=== PATIENT | male | born 1945 | race Caucasian/White ===

== ENCOUNTER 2016-09-01 08:04 | Outpatient (RCR) | payer MEDICARE, OTHER ==
[~2016-09-01 08:04] MED LIST: AMLO10TA82 PO; AMLO5TAB2 PO; ASCO500T20 PO; ASP81CT PO; ATR20T PO; CANA100T PO; CEFU500T5 PO; CETI1TAB2 PO; CLOP75TA28 PO; COLE1TAB PO; DIPH-450 PO; E400C PO; GLMP4T PO; IRBE300T9 PO; ISM30TCR PO; LEVO200T30 PO; LEVO200T6 PO; LEVO300T2 PO; LOSA100T28 PO; LVT.05T PO; METF-380 PO; METO-333 PO; MTF500T PO; MTP25TSR PO; MULT-963 PO; Nitroglycerin SL; OMEP20CA12 PO; POTASSIUM GLUCONATE 595 MG PO; PRAV20TA3 PO; SITA100T PO; UBID50TA3 PO
[2016-09-02] MEDS ORDERED: INSU100I29 SQ (12:45)
[2016-09-02] MEDS ORDERED: NITR0.4T39 SL (12:45)
[2016-09-02] MEDS ORDERED: KRIL1CAP19 PO (13:06)
[2016-09-02] MEDS ORDERED: ISM60TCR PO (13:06)
[2016-09-02] MEDS ORDERED: METF500T4 PO ×2 (13:06)
[2016-09-02] MEDS ORDERED: AMLO10TA2 PO (13:06)
[2016-09-02] MEDS ORDERED: UBID1CAP2 PO (13:06)
[2016-09-02] MEDS ORDERED: CETI1TAB61 PO (13:06)
[2016-09-02] MEDS ORDERED: METO50TA2 PO (13:06)
[2016-09-02] MEDS ORDERED: LEVO175T5 PO (13:06)
[2016-09-02] MEDS ORDERED: GLIM4TAB PO (13:06)
[2016-09-02] MEDS ORDERED: ASCO1TAB36 PO (13:06)
[2016-09-02] MEDS ORDERED: ASPI-983 PO (13:06)
[2016-09-02] MEDS ORDERED: SITA100T12 PO (13:06)
== END 2016-11-03 | disposition home or self-care (01) ==
PROVIDERS: ATTEND Orthopaedic Surgery
DX: M75.111 Incomplete rotator cuff tear or rupture of right shoulder, not specified as traumatic (principal)

== ENCOUNTER 2017-02-16 09:16 | Outpatient (RCR) | payer MEDICARE, OTHER ==
[~2017-02-16 09:16] MED LIST changes: +AMLO10TA2 PO; +ASCO1TAB36 PO; +ASPI-983 PO; +CETI1TAB61 PO; +GLIM4TAB PO; +INSU100I29 SQ; +ISM60TCR PO; +KRIL1CAP19 PO; +LEVO175T5 PO; +METF500T4 PO; +METO50TA2 PO; +NITR0.4T39 SL; +SITA100T12 PO; +UBID1CAP2 PO
== END 2017-02-17 | disposition home or self-care (01) ==
LOC: CR 09:16
PROVIDERS: ATTEND Internal Medicine Cardiovascular Disease
DX: Z48.812 Encounter for surgical aftercare following surgery on the circulatory system (principal); Z95.5 Presence of coronary angioplasty implant and graft
CPT/HCPCS: 93798

== ENCOUNTER 2017-02-25 08:21 | Outpatient (RCR) | payer MEDICARE, OTHER | END 2017-03-04 08:24 | disposition home or self-care (01) | LOC: CR 08:21 | PROVIDERS: ATTEND Internal Medicine Cardiovascular Disease | DX: Z48.812 Encounter for surgical aftercare following surgery on the circulatory system (principal); Z95.5 Presence of coronary angioplasty implant and graft | CPT/HCPCS: 93798 ==

== ENCOUNTER 2018-01-06 06:12 | Outpatient (CLI) | payer MEDICARE, OTHER ==
[~2018-01-06] VITALS: Ht 177.8 cm; Wt 113.4 kg
[~2018-01-06 06:12] MED LIST changes: +METO50TA15 PO; -METO50TA2 PO
[2018-01-06] MEDS ORDERED: ROSU10TA26 PO (15:04)
[2018-01-06] MEDS ORDERED: ZOLP5TAB PO (15:04)
[2018-01-06] MEDS ORDERED: PANT40TA3 PO (15:04)
[2018-01-06] MEDS ORDERED: HYDR25TA4 PO (15:04)
[2018-01-06] MEDS ORDERED: CARV25TA PO (15:04)
[2018-01-06] MEDS ORDERED: curcumin PO (15:04)
[2018-01-06] MEDS ORDERED: LEVO150T6 PO (15:04)
== END 2018-01-06 15:05 ==
LOC: PREOP 06:12
PROVIDERS: ATTEND Specialist
DX: Z01.818 Encounter for other preprocedural examination (principal); H25.12 Age-related nuclear cataract, left eye

== ENCOUNTER 2018-01-13 08:02 | Day surgery (SDC) | payer MEDICARE, OTHER ==
[~2018-01-13] VITALS: Ht 177.8 cm; Wt 113.4 kg
[~2018-01-13 08:02] MED LIST changes: +CARV25TA PO; +HYDR25TA4 PO; +LEVO150T6 PO; +PANT40TA3 PO; +ROSU10TA26 PO; +ZOLP5TAB PO; +curcumin PO
[2018-01-13 08:10] VITALS: BP 137/78
[2018-01-13] MEDS ORDERED: POVIDONE (BETADINE) OPHTH SOLN 5% 30 ML OP ONE (08:15)
[2018-01-13] MEDS ORDERED: EPINEPHrine INJECTION 1 MG/ML AMP INJ ONE (08:15)
[2018-01-13] MEDS ORDERED: TIMOLOL MALEATE 0.5% 5 ML (TIMOPTIC) BTL OU PRN (08:15)
[2018-01-13] MEDS ORDERED: VANCOMYCIN/BSS (COMPOUNDED) 10 MG/ML SYR OP ONE (08:15)
[2018-01-13] MEDS ORDERED: LIDOCAINE PF 1% 2 ML VIAL (OR ONLY) IR PRN (08:15)
[2018-01-13] MEDS ORDERED: MIDAZOLAM 2 MG/2 ML (VERSED) VIAL ONE (08:17)
[2018-01-13] MEDS: TETRACAINE 0.5% OPHTH SOLN 4 ML BTL (SINGLE DOSE ONLY) OU PRN ×4 (08:25→08:44)
[2018-01-13] MEDS: CYCLOPENTOLATE 1% (CYCLOGYL) 2 ML DROPS OP SCH ×3 (08:33→08:44)
[2018-01-13] MEDS: PHENYLEPHRINE 10% OPHTH (NEO-SYN) 5 ML BTL OU SCH ×3 (08:33→08:44)
--- NOTE | 2018-01-13 09:06 | Ophthalmologist Pre-Op Note ---
Pre-Operative Progress Note H&P Reviewed The H&P was reviewed, patient examined and no changes noted. Date H&P Reviewed: Jan 13, 2018 Time H&P Reviewed: 09:05 Pre-Op Dx Cataract, Left Eye DENIA MUELLER MD Jan 13, 2018 09:05
--- NOTE | 2018-01-13 09:28 | Ophthalmology Operative Report ---
Cataract removal/placement IOL PREOPERATIVE DIAGNOSIS: Cataract Left Eye POSTOPERATIVE DIAGNOSIS: Cataract Left Eye PROCEDURE: Cataract removal and placement of posterior chamber implant, left eye SURGEON: Kyle Mueller ANESTHESIA: Topical with sedation COMPLICATIONS: None ESTIMATED BLOOD LOSS: Minimal DESCRIPTION OF PROCEDURE: After proper informed consent was obtained, the patient, a 72 male, was taken to the Operating Room and the left eye was anesthetized with tetracaine. They left eye was then prepped and draped in the usual manner. A wire lid speculum was placed. A paracentesis was made at the left hand position. Preservative free lidocaine was injected into the anterior chamber followed by viscoelastic. A clear corneal incision was made in the temporal position. A capsulorrhexis was preformed and the central nuclear and cortical material were removed. The posterior capsule was polished and Luis Armando 19.5 SN6CWS IOL was placed into the capsular bag. The residual viscoelastic was aspirated and balanced saline solution was injected into the anterior chamber. 1.0 ml of Vancomycin (10mg/ 1.0ml) was injected into the anterior chamber. The would was checked and found to be water tight. The patient tolerated the procedure well without complications. KYLE MUELLER MD Jan 13, 2018 09:28
[2018-01-13 09:35] VITALS: BP 143/74
--- NOTE | 2018-01-13 14:23 | Anesthesia-General Post-Op ---
MAC Patient Condition Mental Status/LOC: Same as Preop Cardiovascular: Satisfactory Nausea/Vomiting: Absent Respiratory: Satisfactory Pain: Controlled Complications: Absent Post Op Complications Complications None Follow Up Care/Instructions Patient Instructions None needed. Anesthesiology Discharge Order Discharge Order Patient is doing well, no complaints, stable vital signs, no apparent adverse anesthesia problems. No complications reported per nursing. ALEXA DIEGO CRNA Jan 13, 2018 14:23
== END 2018-01-13 09:41 | disposition home or self-care (01) ==
LOC: SDC 08:02
PROVIDERS: ATTEND Specialist
DX: H26.9 Unspecified cataract (principal); E11.36 Type 2 diabetes mellitus with diabetic cataract; I10 Essential (primary) hypertension; E03.9 Hypothyroidism, unspecified; K21.9 Gastro-esophageal reflux disease without esophagitis; Z95.1 Presence of aortocoronary bypass graft; Z95.5 Presence of coronary angioplasty implant and graft; Z95.0 Presence of cardiac pacemaker; Z79.82 Long term (current) use of aspirin; Z79.84 Long term (current) use of oral hypoglycemic drugs; Z79.899 Other long term (current) drug therapy; Z87.891 Personal history of nicotine dependence
CPT/HCPCS: 82962

== ENCOUNTER 2018-01-30 05:38 | Outpatient (CLI) | payer MEDICARE, OTHER ==
[~2018-01-30] VITALS: Ht 177.8 cm; Wt 113.4 kg
== END 2018-01-30 13:52 ==
LOC: PREOP 05:38
PROVIDERS: ATTEND Specialist
DX: Z01.818 Encounter for other preprocedural examination (principal); H25.11 Age-related nuclear cataract, right eye

== ENCOUNTER 2018-02-03 07:58 | Day surgery (SDC) | payer MEDICARE, OTHER ==
[~2018-02-03] VITALS: Ht 177.8 cm; Wt 113.4 kg
[~2018-02-03 07:58] MED LIST changes: -METF500T4 PO; +METF500T5 PO; -ROSU10TA26 PO; +ROSU10TA27 PO
[2018-02-03] MEDS ORDERED: POVIDONE (BETADINE) OPHTH SOLN 5% 30 ML OP ONE (08:30)
[2018-02-03] MEDS ORDERED: EPINEPHrine INJECTION 1 MG/ML AMP INJ ONE (08:30)
[2018-02-03] MEDS ORDERED: TIMOLOL MALEATE 0.5% 5 ML (TIMOPTIC) BTL OU PRN (08:30)
[2018-02-03] MEDS ORDERED: VANCOMYCIN/BSS (COMPOUNDED) 10 MG/ML SYR OP ONE (08:30)
[2018-02-03] MEDS ORDERED: LIDOCAINE PF 1% 2 ML AMP IR PRN (08:30)
[2018-02-03 08:35] VITALS: BP 142/76
[2018-02-03] MEDS: TETRACAINE 0.5% OPHTH SOLN 4 ML BTL (SINGLE DOSE ONLY) OU PRN ×4 (08:37→08:50)
[2018-02-03] MEDS: CYCLOPENTOLATE 1% (CYCLOGYL) 2 ML DROPS OP SCH ×3 (08:43→08:50)
[2018-02-03] MEDS: PHENYLEPHRINE 10% OPHTH (NEO-SYN) 5 ML BTL OU SCH ×3 (08:43→08:50)
[2018-02-03] MEDS ORDERED: MIDAZOLAM 2 MG/2 ML (VERSED) VIAL ONE (09:02)
--- NOTE | 2018-02-03 09:22 | Ophthalmologist Pre-Op Note ---
Pre-Operative Progress Note H&P Reviewed The H&P was reviewed, patient examined and no changes noted. Date H&P Reviewed: Feb 03, 2018 Time H&P Reviewed: 09:21 Pre-Op Dx Cataract, Right Eye DENIA MUELLER MD Feb 03, 2018 09:21
[2018-02-03 09:44] VITALS: BP 141/77
--- NOTE | 2018-02-03 09:44 | Ophthalmology Operative Report ---
Cataract removal/placement IOL PREOPERATIVE DIAGNOSIS: Cataract Right Eye POSTOPERATIVE DIAGNOSIS: Cataract Right Eye PROCEDURE: Cataract removal and placement of posterior chamber implant, right eye SURGEON: Kyle Mueller ANESTHESIA: Topical with sedation COMPLICATIONS: None ESTIMATED BLOOD LOSS: Minimal DESCRIPTION OF PROCEDURE: After proper informed consent was obtained, the patient, a 72 male, was taken to the Operating Room and the right eye was anesthetized with tetracaine. They right eye was then prepped and draped in the usual manner. A wire lid speculum was placed. A paracentesis was made at the left hand position. Preservative free lidocaine was injected into the anterior chamber followed by viscoelastic. A clear corneal incision was made in the temporal position. A capsulorrhexis was preformed and the central nuclear and cortical material were removed. The posterior capsule was polished and Alcon19.5 SN6CWS IOL was placed into the capsular bag. The residual viscoelastic was aspirated and balanced saline solution was injected into the anterior chamber. 1.0 mg of Vancomycin (10mg/ 1.0ml) was injected into the anterior chamber. The would was checked and found to be water tight. The patient tolerated the procedure well without complications. KYLE MUELLER MD Feb 03, 2018 09:43
[2018-02-03] MEDS ORDERED: LABETALOL HCL 20 MG/4 ML VIAL ONE (09:49)
--- NOTE | 2018-02-03 11:43 | Anesthesia-General Post-Op ---
MAC Patient Condition Mental Status/LOC: Same as Preop Cardiovascular: Satisfactory Nausea/Vomiting: Absent Respiratory: Satisfactory Pain: Controlled Complications: Absent Post Op Complications Complications None Follow Up Care/Instructions Patient Instructions None needed. Anesthesiology Discharge Order Discharge Order Patient is doing well, no complaints, stable vital signs, no apparent adverse anesthesia problems. No complications reported per nursing. JUAN M PONCE CRNA Feb 03, 2018 11:43
== END 2018-02-03 09:50 | disposition home or self-care (01) ==
LOC: SDC 07:58
PROVIDERS: ATTEND Specialist
DX: E11.36 Type 2 diabetes mellitus with diabetic cataract (principal); I25.10 Atherosclerotic heart disease of native coronary artery without angina pectoris; I10 Essential (primary) hypertension; E78.00 Pure hypercholesterolemia, unspecified; E03.9 Hypothyroidism, unspecified; K21.9 Gastro-esophageal reflux disease without esophagitis; Z95.1 Presence of aortocoronary bypass graft; Z95.5 Presence of coronary angioplasty implant and graft; Z79.82 Long term (current) use of aspirin; Z79.84 Long term (current) use of oral hypoglycemic drugs; Z79.899 Other long term (current) drug therapy
CPT/HCPCS: 82962

== ENCOUNTER 2018-11-03 09:13 | Outpatient (RCR) | payer MEDICARE, OTHER ==
[~2018-11-03 09:13] MED LIST changes: -AMLO10TA2 PO; +AMLO10TA7 PO; -LOSA100T28 PO; +LOSA100T57 PO; +METF-397 PO; -METF500T5 PO
== END 2018-12-28 | disposition home or self-care (01) ==
LOC: CR 09:13
PROVIDERS: ATTEND Internal Medicine Interventional Cardiology
DX: Z48.812 Encounter for surgical aftercare following surgery on the circulatory system (principal); Z95.5 Presence of coronary angioplasty implant and graft
CPT/HCPCS: 93798

== ENCOUNTER 2019-06-04 09:16 | Outpatient (RCR) | payer MEDICARE, OTHER ==
[~2019-06-04 09:16] MED LIST changes: -ROSU10TA27 PO; +ROSU10TA28 PO
== END 2019-08-19 | disposition home or self-care (01) ==
LOC: CR 09:16
PROVIDERS: ATTEND Internal Medicine Interventional Cardiology
DX: I20.8 Other forms of angina pectoris (principal)
CPT/HCPCS: 93798

== ENCOUNTER 2019-07-11 09:13 | Outpatient (RCR) | payer MEDICARE, OTHER | END 2019-07-12 | disposition home or self-care (01) | LOC: CR3 09:13 | PROVIDERS: ATTEND Family Medicine | DX: Z29.8 Encounter for other specified prophylactic measures (principal) ==

== ENCOUNTER 2019-07-27 08:51 | Outpatient (RCR) | payer MEDICARE, OTHER | END 2019-08-12 | disposition home or self-care (01) | LOC: CR3 08:51 | PROVIDERS: ATTEND Family Medicine | DX: Z29.8 Encounter for other specified prophylactic measures (principal) ==

== ENCOUNTER 2019-09-17 10:34 | Outpatient (RCR) | payer MEDICARE, OTHER | END 2019-09-26 | disposition home or self-care (01) | LOC: CR3 10:34 | PROVIDERS: ATTEND Family Medicine | DX: Z29.8 Encounter for other specified prophylactic measures (principal) ==